=== PATIENT | male | born 1930 | race Caucasian/White ===

== ENCOUNTER 2016-12-29 07:35 | Day surgery (SDC) | payer MEDICARE, BC ==
[2016-12-25 10:42] LABS: BASOPHILS 0.8 %; BASOPHILS ABSOLUTE 0.05 10/3/uL (0.0-0.16); EOSINOPHILS 2.9 %; EOSINOPHILS ABSOLUTE 0.19 10/3/uL (0.0-0.53); HEMOGLOBIN 14.1 g/dL (13.6-17.8); IMMATURE GRANULOCYTES 0.2 %; IMMATURE GRANULOCYTES ABSOLUTE 0.01 10/3/uL (0.0-0.11); LYMPHOCYTES 34.1 %; LYMPHOCYTES ABSOLUTE 2.23 10/3/uL (0.67-4.30); MANUAL DIFF NO %; MEAN CORPUS HGB CONC 34.4 g/dL (32.0-36.0); MEAN CORPUSCULAR HEMOGLOB 31.1 pg (26.0-34.0); MEAN CORPUSCULAR VOLUME 90.3 fL (80-100); MEAN PLATELET VOLUME 9.6 fL (9.2-13.0); MONOCYTES 9.2 %; NEUTROPHILS 52.8 %; NEUTROPHILS ABSOLUTE 3.46 10/3/uL (2.02-8.40); PLATELET COUNT 209 10/3/uL (150-400); RBC DISTRIBUTION WIDTH 13.3 % (12.0-16.0); RED CELL COUNT 4.54 10/6/uL (4.7-6.1); WHITE BLOOD CELLS 6.5 10/3/uL (4.5-10.5)
[2016-12-25 10:46] LABS: PARTIAL THROMBO TIME 27.9 SEC (22.5-37.2)
[2016-12-25 10:47] LABS: INTERNATIONAL NORMAL RATI 1.1 UNITS (-); PROTIME (NOT ORD) 14.2 SEC (12.0-14.5)
[2016-12-25 10:56] LABS: A/G RATIO 1.2 (0.7-1.9); ALBUMIN 3.7 G/DL (3.5-5.0); ALKALINE PHOSPHATASE 81 U/L (45-117); BUN (BLOOD UREA NITROGEN) 10 MG/DL (6-23); CHLORIDE, SERUM 109 MMOL/L (96-112); CO2 (CARBON DIOXIDE) 31 MMOL/L (24-34); CREATININE 1.01 MG/DL (0.70-1.30); GFR AFRICAN AMERICAN 79 ML/MIN (>=60); GFR NON AFRICAN AMERICAN 68 ML/MIN (>=60); GLOBULIN 3.1 G/DL (2.5-4.1); GLUCOSE, SERUM 76 MG/DL (60-99); POTASSIUM, SERUM 4.1 MMOL/L (3.5-5.3); SGOT(AST) 22 U/L (5-40); SGPT(ALT) 26 U/L (5-65); SODIUM, SERUM 145 MMOL/L (135-148); TOTAL BILIRUBIN 0.7 MG/DL (0-1.2); TOTAL PROTEIN 6.8 G/DL (6.0-8.5)
--- NOTE | ~2016-12-29 | OP ---
Record Of Operation [facility] [address] [place]. 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 PATHOLOGY: Large protruding bulging internal hemorrhoids pushing down the rectal mucosa to prolapse. The internal hemorrhoids were engorged and hemorrhagic. PROCEDURE: Anal block with 30 mL of 0.5% Marcaine with epinephrine followed by exam under anesthesia with anoscopy and a procedure for prolapse and hemorrhoids, stapled anopexy followed by rigid sigmoidoscopy and an excision of a right buttock papilloma. SURGEON: Dakota Contreras M.D., FACS ADVERTISING SUPERVISOR: Jeni Contreras RN IRONWORKER APPRENTICE SPECIMEN REMOVED: Mucosal prolapse and one papilloma separately submitted. ESTIMATED BLOOD LOSS: 5 mL. 900 mL of crystalloid were given during the procedure. COMPLICATIONS: There were no complications. DESCRIPTION OF PROCEDURE: The patient was prepped and draped in routine fashion in a freya- knife prone position. The patient's buttocks were taped open. Time-out was called and agreement with all personnel of the procedure, instruments necessary and allergies. No antibiotics were given. The patient was then anesthetized with 30 mL 0.5% Marcaine for circumferential anal block as the initial step of procedure. After this was done, the Beltran anoscope was introduced. Internal exam performed showing the bulging circumferential mucosal prolapse and engorged hemorrhoids. After this was done, the anoscope provided with the stapling device was sutured to the perianal skin in four quadrants with 2-0 silk. The obturator that was semicircular with an opening for suture placement was then utilized to place a pursestring circumferentially around the anal mucosa distal to the protruding hemorrhoids as best as could be accomplished. A mucosal stitch was performed not grasping any of the muscularis. This was done circumferentially and a pursestring pulled out anteriorly with both tails ready for retraction. After this was done, the 33 mm stapling device was placed through the anoscope and through the pursestring. Using kendell hooks, the pursestring ends were pulled up through the instrument itself and tied together. These were pulled up with moderate pressure and the widely opened stapling device closed down on the hemorrhagic prolapsing tissue. After this Record Of Operation [facility] [address] [place]. [address] NAME: FRANCHESKA STRINGER JR : 34 STATUS : [facility] PAT#: [id number] AGE: 86 ADM/REG DATE : 12/29/16 MR#: [id number] REPORT SERV DATE: 12/29/16 DICTATED BY: DAKOTA CONTRERAS III DATE: 12/29/16 REPORT STATUS : Draft TRANSCRIBED BY: BENJAMIN DATE: 12/29/16 was done, the instrument was closed to a tight staple height and fired. The stapler was held under compression for 2 minutes by the clock prior to its release. The stapling device was then opened and pulled through the stapled tissues and opened on the back table where there was a nice circular doughnut. Anoscope was then reintroduced and no bleeding incurred. After this was done, the sutured anoscope was removed and a Beltran anoscope reintroduced re- examining the suture line, staple line without any significant bleeding noted. After this was done, a rigid anoscope was introduced. The rigid anoscope was advanced to 15 cm, but could not be advanced further due to stool that was present in the distal sigmoid. No abnormalities were found in the 15 cm scoped and several pieces of stool were removed to get a better view. The staple line was then reinspected with sigmoidoscope showing no real bleeding. After this was done, a plug of Gelfoam was placed in the anal canal with Nupercainal ointment and rectal rolls applied and the procedure concluded. 900 mL of crystalloid given, 5 mL estimated blood loss. The patient tolerated the procedure well and will be discharged on additional hydrocodone, which is Lortab 2.5/325 to take every 4 hours p.r.n. for pain and Zofran 4 mg to take every six hours p.r.n. for any nausea that might occur. RB/MODL Dakota Contreras III, M.D. / [id number] CC: Homar Bauer III, M.D. Michael Goodman, M.D.
[~2016-12-29 07:35] MED LIST: ANUSOL-HC2.5 % PR; ARICEPT10 PO; ASAB PO; BENICAR40 PO; BETA GEST PO; COCONUT OIL PO; D 5000 PO; ENZYME PO; LEVAQUIN5T PO; MELA3 PO; MIRALAX POWDER1 PKT PO; MULTIPLE VIT PO; NAMENXR7 PO; NIACIN100 PO; NORCO1 TA1 PO; NORV5 PO; OS500+D PO; PEPCID40 MG PO; PROTONIX PO; SALMON OIL PO; SYMBICORT 80/4.1 INH INH; VITAMIN C100 MG PO; ZANTAC150 MG PO; ZOCOR20 PO; ZOCOR40 PO; ZOLOFT25 MG PO
== END 2016-12-29 13:01 | disposition home or self-care (01) ==
LOC: SDC 07:35
PROVIDERS: Surgery
PROC: 06LY4ZC Occlusion of Hemorrhoidal Plexus, Percutaneous Endoscopic Approach (ICD-10-PCS; principal; 2016-12-29 09:15)
DX: K64.2 Third degree hemorrhoids (principal); K62.2 Anal prolapse; I10 Essential (primary) hypertension; E78.00 Pure hypercholesterolemia, unspecified; F03.90 Unspecified dementia, unspecified severity, without behavioral disturbance, psychotic disturbance, mood disturbance, and anxiety; J45.909 Unspecified asthma, uncomplicated; Z95.0 Presence of cardiac pacemaker; Z79.82 Long term (current) use of aspirin; Z79.899 Other long term (current) drug therapy; Z98.890 Other specified postprocedural states
CPT/HCPCS: 80053; 85025; 85610; 85730; 88304; 88305; 93005; J2405; J2710; J3010

== ENCOUNTER 2017-04-21 13:43 | Observation (INO) | payer MEDICARE, BC ==
[~2017-04-21] VITALS: Ht 185.4 cm; Wt 79.5 kg
--- NOTE | ~2017-04-21 | CN ---
Consultation Report [facility] [address] [place]. [address] NAME: FRANCHESKA STRINGER JR : 34 STATUS : ADM Yasmany PAT#: [id number] AGE: 86 ADM/REG DATE : 04/21/17 MR#: [id number] REPORT SERV DATE: 04/22/17 DICTATED BY: MEMO CARPENTER DATE: 04/22/17 REPORT STATUS : Draft TRANSCRIBED BY: MODL DATE: 04/22/17 CONSULTATION DATE OF CONSULTATION: 04/22/2017 HISTORY OF PRESENT ILLNESS: This patient apparently had some dark stools for a few days. He does have a history of hemorrhoidal bleeding, which was controlled by Dr. Contreras. It has improved since his surgery. He takes a baby aspirin. He denies abdominal pain. He had a full colonoscopy in 2015. He does have loose stools two to three a day. MEDICATIONS: Include Norvasc, aspirin, Aricept, [place], and Zoloft. PHYSICAL EXAMINATION: GENERAL: Alert. VITAL SIGNS: Blood pressure 160/70. SKIN: Warm and dry. CHEST: Clear to auscultation and percussion. CARDIAC: Normal. ABDOMEN: Soft and nontender. LABORATORY DATA: Hemoglobin 13.9, which is stable. No increased BUN. IMPRESSION: 1. Possible upper GI bleeding. 2. History of hemorrhoidal bleeding with bright red blood per rectum, controlled with hemorrhoidectomy from Dr. Contreras. 3. Dementia. PLAN: 1. EGD. 2. At this point, I could not view a colonoscopy is indicated. MG/BENJAMIN Memo Carpenter M.D. / [id number] CC: Homar Gilmore M.D.
--- NOTE | ~2017-04-21 | HP ---
History And Physical [address] [place]. [address] NAME: FRANCHESKA STRINGER JR : 34 STATUS : ADM IN [facility]#: [id number] AGE: 86 ADM/REG DATE : 04/21/17 MR#: [id number] REPORT SERV DATE: 04/21/17 DICTATED BY: FLORENCE BARTHOLOMEW DATE: 04/21/17 REPORT STATUS : Draft TRANSCRIBED BY: MODL DATE: 04/21/17 DATE OF ADMISSION: 04/21/2017 CHIEF COMPLAINT: Having the black stools since yesterday, also showed bright red blood from the rectum this morning. HISTORY OF PRESENT ILLNESS: This is an 86-year-old very pleasantly demented man was brought to the hospital with his . He did not tell her anything until last night. Last night, he showed his about the black stool in his commode, and that this morning she was carefully checking again and she saw some bright red spots in the toilet and they decided to come to the hospital. He had a history of GI bleed back in 2015, was treated here conservatively at that time. Also, the records are indicating the patient had a grade 3 hemorrhoid, which was treated surgically with Dr. Bird in the subsequent year, which was December 2016. After that, there was no further surgery found or updated in his medical record. The patient is very pleasant and does not complain any other problems including urination, habit change, or constipation or diarrhea, or abdominal pain, nausea, vomiting. He eats a regular meal without any problem. According to the , all the review of systems are obtained due to his dementia issue. PAST MEDICAL HISTORY: 1. Diverticulosis. 2. Hypertension. 3. Dementia. 4. Also has a functional decline from the dementia between the last year and this year. PAST SURGICAL HISTORY: Had a recent hemorrhoid surgery with Dr. Bird this year. 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 ALLERGIES: NO KNOWN DRUG ALLERGIES. SOCIAL HISTORY: He lives with his at home. Does not use any walking aid, but he is mainly spending his days and inside of the house and sleeping a lot. He is . FAMILY HISTORY: Noncontributory. MEDICATIONS AT HOME: 1. Norvasc 5 mg once a day. 2. Aspirin 81 mg once a day. 3. Calcium carbonate 2000 mg once a day. 4. Vitamin D once a day. 5. Aricept 10 mg once a day. 6. Alsey 5 as needed, barely use. History And Physical [address] [place]. [address] NAME: FRANCHESKA STRINGER JR : 34 STATUS : ADM IN PAT#: [id number] AGE: 86 ADM/REG DATE : 04/21/17 MR#: [id number] REPORT SERV DATE: 04/21/17 DICTATED BY: FLORENCE BARTHOLOMEW DATE: 04/21/17 REPORT STATUS : Draft TRANSCRIBED BY: BENJAMIN DATE: 04/21/17 7. Namenda XR 14 mg once a day. 8. Centrum once a day. 9. Zoloft 25 mg once a day. PHYSICAL EXAMINATION: GENERAL APPEARANCE: He is alert, awake, not in acute distress, very pleasant elderly gentleman. HEENT: Pupils are equal, round, and reactive to light. EOMI intact. Conjunctivae not anemic. CHEST: Clear to auscultate auscultation bilaterally. Has a normal respiratory effort. CARDIOVASCULAR: There are no murmurs, rubs, or gallops noted. Has a regular rhythm and rate. ABDOMEN: Bowel sounds present and soft, and I do not appreciate any tenderness or rebound tenderness. No organomegaly appreciated. EXTREMITIES: There is no pitting edema. RECTAL: Showing a small very old hemorrhoid externally, but it does not show any evidence of active bleeding from the externally. LABORATORY DATA: Showed sodium 143, potassium 3.5, BUN 11, creatinine 0.98. WBC 8.9, hemoglobin 13.5, hematocrit 40.3, platelets are 191. INR is 1.0. ASSESSMENT AND PLAN: 1. Gastrointestinal bleed with a history of diverticulosis and external hemorrhoid. 2. Dementia. 3. Hypertension. Overall, the patient will be admitted to the hospital for close observation, put him on the PPI, and GI consultation will be obtained. His is a power of assistant county attorney and she voiced that the patient is a full code. EKL/MODL Florence Bartholomew M.D. / [id number] CC: Homar Gilmore M.D.
--- NOTE | ~2017-04-21 | EGD ---
EGD REPORT [facility] [address] [address] NAME: SEBAS STRINGER JR : 34 STATUS : ADM IN PAT#: [id number] AGE: 86 ADM/REG DATE : 04/21/17 MR#: [id number] REPORT SERV DATE: 04/22/17 DICTATED BY: MEMO MEHTA DATE: 04/22/17 REPORT STATUS : Draft TRANSCRIBED BY: [facility] DATE: 04/22/17 Endoscopy Center Patient Name: Sebas Stringer Date of : 1930 Attending MD: MEMO MEHTA MD Procedure Date No Time: 04/22/2017 Procedure: Upper GI endoscopy Indications: Melena Referring MD: MENG MONDRAGON Medicines: Propofol per Anesthesia Complications: No immediate complications. Procedure: Pre-Anesthesia Assessment: - ASA Grade Assessment: III - A patient with severe systemic disease. After obtaining informed consent, the endoscope was passed under direct vision. Throughout the procedure, the patient's blood pressure, pulse, and oxygen saturations were monitored continuously. The GIF [id number] was introduced through the mouth, and advanced to the third part of duodenum. The upper GI endoscopy was accomplished without difficulty. The patient tolerated the procedure well. Findings: There were esophageal mucosal changes consistent with long-segment Sherwood's esophagus present in the lower third of the esophagus. The maximum longitudinal extent of these mucosal changes was 3 cm in length. A small hiatus hernia was present. Multiple diffuse petechiae were found on the greater curvature of the stomach. There is no endoscopic evidence of ulceration in the entire examined stomach. The examined duodenum was normal. 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 - Hiatus hernia. - Gastric petechia(e). [All Maneuvers]. - Normal examined duodenum. Procedure Code(s): --- Professional --- 48366, Esophagogastroduodenoscopy, flexible, transoral; diagnostic, including collection of specimen(s) by brushing or washing, when performed (separate procedure) EGD REPORT [facility] [address] [facility] [place]. [address] NAME: SEBAS STRINGER : 34 STATUS : ADM IN [facility]#: [id number] AGE: 86 ADM/REG DATE : 04/21/17 MR#: [id number] REPORT SERV DATE: 04/22/17 DICTATED BY: MEMO MEHTA. DATE: 04/22/17 REPORT STATUS : Draft TRANSCRIBED BY: [employer] DATE: 04/22/17 Diagnosis Code(s): --- Professional --- K22.9, Disease of esophagus, unspecified K44.9, Diaphragmatic hernia without obstruction or gangrene K31.9, Disease of stomach and duodenum, unspecified K92.1, Melena CPT copyright 2013 [employer]. All rights reserved. The codes documented in this report are preliminary and upon commercial photographer review may be revised to meet current compliance requirements. Memo Mehta MD MEMO MEHTA MD 04/22/2017 9:50 AM This report has been signed electronically. Number of Addenda: 0 Note Initiated On: 04/22/2017 9:29 AM Scope Withdrawal Time 0 hours 0 minutes 0 seconds [address] [place] [address]
--- NOTE | ~2017-04-21 | DS ---
Discharge Summary [id number] [place]. [address] NAME: FRANCHESKA STRINGER JR : 34 STATUS : ADM Yasmany PAT#: [id number] AGE: 86 ADM/REG DATE : 04/21/17 MR#: [id number] REPORT SERV DATE: 04/22/17 DICTATED BY: FLORENCE BARTHOLOMEW DATE: 04/22/17 REPORT STATUS : Draft TRANSCRIBED BY: MODL DATE: 04/22/17 ADMISSION DATE: 04/21/2017 DISCHARGE DATE: 04/22/2017 DISCHARGE DIAGNOSES: 1. Gastrointestinal bleed with melena, status post EGD showed Sherwood's esophagus, gastric petechiae. The patient was put on PPI. 2. Dementia, stable. 3. Hypertension. MANUAL TESTER: Dr. Mehta. PROCEDURE: Upper endoscopy showed Sherwood's esophagus and showed gastric petechiae. HISTORY OF PRESENT ILLNESS: This is an 86-year-old male patient, who came to the hospital with melena. Please see dictated H and P. HOSPITAL COURSE: He was admitted to hospital with GI bleed. Had endoscopy done, which showed Sherwood's esophagus with a gastric petechiae and also Dr. Mehta did a rectal exam, it showed a black stool. He put the patient on the PPI and the patient has been hemodynamically stable and blood count was very stable. Therefore, the patient was put on the regular diet. The patient will be discharged to home with Protonix and Metamucil daily basis. Need to follow up with Dr. Mehta. DISPOSITION: Home. DISCHARGE MEDICATIONS: Medicine was not changed. EKL/MODL Florence Bartholomew M.D. / [id number] CC: Homar Gilmore M.D.
[2017-04-21 14:35] LABS: BASOPHILS ABSOLUTE 0.09 10/3/uL (0.0-0.16); EOSINOPHILS 4.1 %; EOSINOPHILS ABSOLUTE 0.36 10/3/uL (0.0-0.53); HEMATOCRIT 40.3 % (40.0-51.0); HEMOGLOBIN 13.5 g/dL (13.6-17.8); IMMATURE GRANULOCYTES 0.1 %; IMMATURE GRANULOCYTES ABSOLUTE 0.01 10/3/uL (0.0-0.11); LYMPHOCYTES 35.7 %; LYMPHOCYTES ABSOLUTE 3.17 10/3/uL (0.67-4.30); MEAN CORPUS HGB CONC 33.5 g/dL (32.0-36.0); MEAN CORPUSCULAR HEMOGLOB 28.8 pg (26.0-34.0); MEAN CORPUSCULAR VOLUME 85.9 fL (80-100); MEAN PLATELET VOLUME 9.7 fL (9.2-13.0); MONOCYTES 9.5 %; MONOCYTES ABSOLUTE 0.84 10/3/uL (0.21-1.20); NEUTROPHILS 49.6 %; PLATELET COUNT 191 10/3/uL (150-400); RBC DISTRIBUTION WIDTH 14.5 % (12.0-16.0); RED CELL COUNT 4.69 10/6/uL (4.7-6.1); WHITE BLOOD CELLS 8.9 10/3/uL (4.5-10.5)
[2017-04-21 14:36] LABS: MANUAL DIFF NO %
[2017-04-21 14:41] LABS: PROTIME (NOT ORD) 13.3 SEC (12.0-14.5)
[2017-04-21 14:49] LABS: ALBUMIN 3.4 G/DL (3.5-5.0); ALKALINE PHOSPHATASE 130 U/L (45-117); BUN (BLOOD UREA NITROGEN) 11 MG/DL (6-23); CALCIUM, SERUM 8.6 MG/DL (8.5-10.4); CHLORIDE, SERUM 109 MMOL/L (96-112); CO2 (CARBON DIOXIDE) 24 MMOL/L (24-34); CREATININE 0.98 MG/DL (0.70-1.30); GFR AFRICAN AMERICAN 82 ML/MIN (>=60); GFR NON AFRICAN AMERICAN 71 ML/MIN (>=60); GLOBULIN 3.4 G/DL (2.5-4.1); GLUCOSE, SERUM 108 MG/DL (60-99); POTASSIUM, SERUM 3.5 MMOL/L (3.5-5.3); SGOT(AST) 20 U/L (5-40); SGPT(ALT) 21 U/L (5-65); SODIUM, SERUM 143 MMOL/L (135-148); TOTAL BILIRUBIN 0.3 MG/DL (0-1.2); TOTAL PROTEIN 6.8 G/DL (6.0-8.5)
[2017-04-21] MEDS ORDERED: ARICEPT10 PO (15:47)
[2017-04-21] MEDS ORDERED: NORV5 PO (15:47)
[2017-04-21] MEDS ORDERED: NORCO1 TA1 PO (15:48)
[2017-04-21] MEDS ORDERED: ZOLOFT25 MG PO (15:48)
[2017-04-21] MEDS ORDERED: NAMENXR14 PO (15:48)
[2017-04-21] MEDS ORDERED: D 5000 PO (15:48)
[2017-04-21] MEDS ORDERED: HALF81 PO (15:49)
[2017-04-21] MEDS ORDERED: CALTRAT600 PO (15:49)
[2017-04-21] MEDS ORDERED: CENTRUM PO (15:50)
[2017-04-21 18:36] LABS: HEMATOCRIT 40.5 % (40.0-51.0); HEMOGLOBIN 13.9 g/dL (13.6-17.8)
[2017-04-22 01:58] LABS: HEMATOCRIT 39.4 % (40.0-51.0); HEMOGLOBIN 13.8 g/dL (13.6-17.8)
[2017-04-22 10:57] LABS: HEMATOCRIT 43.7 % (40.0-51.0); HEMOGLOBIN 15.2 g/dL (13.6-17.8)
[2017-04-22] MEDS ORDERED: PROTONIX PO (13:01)
[2017-04-22] MEDS ORDERED: METPAKSF PO (13:04)
== END 2017-04-22 16:15 | disposition home or self-care (01) ==
LOC: ER 13:43 → 2SO 16:23
PROVIDERS: Emergency Medicine; Internal Medicine
PROC: 0DJ08ZZ Inspection of Upper Intestinal Tract, Via Natural or Artificial Opening Endoscopic (ICD-10-PCS; principal; 2017-04-21)
DX: K92.1 Melena (principal); K22.70 Barrett's esophagus without dysplasia; K44.9 Diaphragmatic hernia without obstruction or gangrene; F03.90 Unspecified dementia, unspecified severity, without behavioral disturbance, psychotic disturbance, mood disturbance, and anxiety; I10 Essential (primary) hypertension; J45.909 Unspecified asthma, uncomplicated; Z79.899 Other long term (current) drug therapy; Z85.828 Personal history of other malignant neoplasm of skin; Z79.52 Long term (current) use of systemic steroids; Z79.82 Long term (current) use of aspirin; Z98.890 Other specified postprocedural states
CPT/HCPCS: 36415; 80053; 85014; 85018; 85025; 85610; 86850; 86900; 86901; 93005; 96374; 96376; 99285; A9270-GY; C9113; G0378